=== PATIENT | male | born 1990 | race Caucasian/White ===

== ENCOUNTER 2024-12-24 22:19 | Emergency (ER) | payer MEDICAID ==
[~2024-12-24] VITALS: Ht 180.3 cm; Wt 77.1 kg
[2024-12-25] MEDS ORDERED: Ketorolac Tromethamine 60 MG/2 ML VIAL IM ONE (01:15)
[2024-12-25] MEDS ORDERED: Bacitracin Zinc 14 GM TUBE T ONE (01:15)
== END 2024-12-25 01:24 | disposition home or self-care (01) ==
LOC: ED 22:19
DX: S00.83XA Contusion of other part of head, initial encounter (principal); S80.212A Abrasion, left knee, initial encounter; S80.211A Abrasion, right knee, initial encounter; R07.81 Pleurodynia; Y04.8XXA Assault by other bodily force, initial encounter; Y93.89 Activity, other specified; Y92.89 Other specified places as the place of occurrence of the external cause; Y99.8 Other external cause status